=== PATIENT | male | born 1975 | race Caucasian/White ===

== ENCOUNTER 2019-03-13 02:18 | Emergency (ER) | payer OTHER ==
[~2019-03-13] VITALS: Ht 182.9 cm; Wt 98.9 kg
[2019-03-13 02:19] VITALS: Ht 182.9 cm; Wt 98.9 kg
[2019-03-13 03:26] LABS: BASOPHIL % 0.8 % (0-2); PLATELET COUNT 222 x10^3mcL (130-400); RED CELL DISTRIBUTION WIDTH 12.6 % (11.5-14.5)
[2019-03-13 03:32] LABS: CALCIUM 9.9 mg/dL (8.5-10.1); CARBON DIOXIDE 26.9 mmol/L (21-32); CREATININE SERUM 1.5 mg/dL (0.7-1.3); POTASSIUM SERUM 3.4 mmol/L (3.5-5.1)
[2019-03-13 03:37] LABS: ALBUMIN 4.2 g/dL (3.4-5.0); BILIRUBIN TOTAL 0.24 mg/dL (0.20-1.00); TOTAL PROTEIN, SERUM 7.9 g/dL (6.4-8.2)
[2019-03-13 04:25] LABS: microscopic required? NO
[2019-03-13 04:37] LABS: UA SPECIFIC GRAVITY <=1.005 (1.005-1.035); urine erythrocyte NEGATIVE (NEGATIVE)
[2019-03-13 06:51] VITALS: BP 127/69
== END 2019-03-13 06:51 | disposition home or self-care (01) ==
LOC: ED 02:18
PROVIDERS: Emergency Medicine
DX: N20.0 Calculus of kidney (principal); N23 Unspecified renal colic; E78.00 Pure hypercholesterolemia, unspecified
CPT/HCPCS: J1885; J2405; J3010; J7030

== ENCOUNTER 2019-04-18 06:41 | Inpatient (IN) | payer OTHER ==
[~2019-04-18] VITALS: Ht 182.9 cm; Wt 99.8 kg
[2019-04-18 06:45] VITALS: Ht 182.9 cm; Wt 99.8 kg
--- NOTE | 2019-04-18 06:52 | NUR ---
PT BIB SELF WITH C/O INTERMITTENT DIZZINESS AND SOB X 2 DAYS. PT DENIES ANY CP OR SYNCOPAL EPISODE. DENIES ANY FEVER. DENIES ANY N/V/D. PT STS I TOOK ASPIRIN TO HELP WITH PAIN. PT STS HAVING HX OF VERTIGO BUT THIS DIZZINESS DOES NOT SEEM LIKE VERTIGO. PT STS FEELING LIGHTHEADED. DENIES HEADACHE. PT IS A/O X4. PLACED ON FULL CM. WILL ENDORSE TO ONCOMING RN.
--- NOTE | 2019-04-18 06:57 | NUR ---
DR VALLEJO AT BEDSIDE
[2019-04-18 07:23] LABS: BASOPHIL % 0.7 % (0-2); PLATELET COUNT 192 x10^3mcL (130-400); RED CELL DISTRIBUTION WIDTH 12.9 % (11.5-14.5)
[2019-04-18 07:40] LABS: CALCIUM 8.5 mg/dL (8.5-10.1); CARBON DIOXIDE 24.6 mmol/L (21-32); CHLORIDE SERUM 104 mmol/L (98-107); CREATININE SERUM 1.3 mg/dL (0.7-1.3); GFR1 > 60 mL/min; GLUCOSE SERUM 124 mg/dL (74-106); POTASSIUM SERUM 3.4 mmol/L (3.5-5.1); SODIUM SERUM 140 mmol/L (136-145)
[2019-04-18 07:45] LABS: ALKALINE PHOSPHATASE 70 U/L (46-116); ALT/SGPT 33 U/L (16-63); BILIRUBIN TOTAL 0.24 mg/dL (0.20-1.00); LIPASE 190 IU/L (73-393); MAGNESIUM 1.7 mg/dL (1.8-2.4); T4(THYROXINE) 4.7 ug/dL (4.7-13.3); TOTAL PROTEIN, SERUM 7.6 g/dL (6.4-8.2)
[2019-04-18 07:50] LABS: microscopic required? NO
[2019-04-18 07:50] LABS: CHOLESTEROL 216 mg/dL (<200); HDL CHOLESTEROL 27 mg/dL (40-60)
[2019-04-18 07:58] LABS: AST/SGOT 12 U/L (15-37)
--- NOTE | 2019-04-18 07:58 | NUR ---
STATES AT THIS TIME FEELS NORMAL,DIZZINESS INTERMITTENT ON AND OFF SINCE 7 DAYS,
[2019-04-18 08:20] LABS: AMPHETAMINE QUAL UR NONE DETECTED (See below)
[2019-04-18 09:12] LABS: UA SPECIFIC GRAVITY 1.025 (1.005-1.035); urine erythrocyte NEGATIVE (NEGATIVE)
--- NOTE | 2019-04-18 10:00 | NUR ---
AWAKE ALERT, NO COMPLAINTS, NO SOB, RESP. EASY
--- NOTE | 2019-04-18 11:30 | NUR ---
RECEIVED PT FROM ER VIA GURNEY TRANSFER TO [facility], PT AMBULATORY, VERBAL, SAMOAN, ABLE TO MAKE NEEDS KNOWN, AXOX4, DENIED CP/PAIN/PRESSURE, DENIED N/V/D/DIZZINESS, RESP EVEN AND NON-LABORED, NO COUGH, CHEST RISE SYMMETRICALLY, TELE #1, NSR, HR-85 AT THIS TIME, PERRLS, NO REDNESS/DISCHARGE, ABD FLAT AND NONTENDER TO TOUCH, BS ACTIVE X 4, LAST BM 04/18/19, SOFT, ABLE TO MOVE ALL EXTREMITIES, CAP REFILL < 2 SECS, PALP PULSES, CALM AND COPPERATIVE, IV TO LFA PATENT AND NO INFILTRATION NOTED, V/S: 98.1, 135/73 (93), 85, 0/10, 18, 99% AT RA, SAFETY PRECAUTION FOLOWED, ALL NEEDS MET AT THIS TIME, CONTINUE TO MONITOR
[2019-04-18 11:58] VITALS: BP 135/73
--- NOTE | 2019-04-18 12:23 | NUR ---
MRSA SCREENING DONE
--- NOTE | 2019-04-18 12:36 | NUR ---
SEEN BY DR TORRES BRIDGE IRONWORKER HELPER, NO FURTHER CONCERNS NEEDED WHEN ASKED, CONTINUE TO MONITOR
--- NOTE | 2019-04-18 13:24 | NUR ---
PT RESTING IN BED, ECHO AND US CARTOTID DONE AT BEDSIDE
--- NOTE | 2019-04-18 13:51 | NUR ---
PT REQUESTED DOUBLE PORTION D/T BODY SIZE AND MUSCULAR BODY BUILD, REQUEST REFFERED TO PRODUCT SUPPORT CONSULTANT, ALL NEEDS MET, CONTINUE TO MONITOR
--- NOTE | 2019-04-18 16:10 | NUR ---
CALLED TO [employer] RETREAD BUILDER AND TOLD PATIENT CAME DX FOR CHEST PAIN AND IF SHE WANTS TO PUT HIM ON PROTOCOL. SHE STATED SHE WANTS TO WAIT FOR TELETYPEWRITER INSTALLER TO SEE PATIENT.
--- NOTE | 2019-04-18 16:45 | NUR ---
PT RESTING IN BED, NEW ORDER NOTED AND CARRIED OUT, NO ASE NOTED AT THIS TIME, SAFETY PROTOCOL FOLLOWED, FALL RISK, CONTINUE TO MONITOR
[2019-04-18 17:00] VITALS: BP 123/69
--- NOTE | 2019-04-18 17:00 | NUR ---
PT REFUSED TO PUT ON SCDs PER MD ORDER AND PROTOCOL, VERBALIZED UNDERSTANDING RISKS AND BENEFITS, STILL REFUSED SCD, VENEER GLUE SPREADER ROLO AND CHARGE NURSE VARSHA MADE AWARE
[2019-04-18] MEDS ORDERED: MULTI-VITAMINS1 TAB PO (17:31)
--- NOTE | 2019-04-18 18:05 | NUR ---
PT IN BED, RESTING, AXOX4, CALM AND COPPERATIVE, VERBAL, NO FACIAL DROOP/SLURRED SPEECH, DENIED CP/YANES/PAIN/PRESSURE/ PALPITATION, DENIED N/V/D/DIZZINESS, NO COUGH, NO SOB, CHEST RISE SYMMETRICALLY, ABD FLAT AND NON-TENDERED TO TOUCH, CAP REFILL < 2 SECS, PALP PULSES, ABLE TO MOVE ALL EXTREMITIES, AMBULATORY, CONTINENT, TELE #1, IV PATENT AND NO INFILTRATION NOTED, ALL NEEDS MET AT THIS TIME, SAFETY PROTOCOL FOLLOWED, WILL ENDORSE TO ONCOMING RN
--- NOTE | 2019-04-18 19:05 | NUR ---
REPORT RECEIEVED FROM DAY SHIFT FROM DAY SHIFT RN. PATIENT WAS SEEN AND IS RESTING COMFORTABLY IN BED. NO DISTRESS NOTED. BREATHING EVEN AND UNLABORED ON ROOM AIR. NO SOB OR RESP DISTRESS NOTED. DENIES CHEST PAIN. NO C/O PAIN. TELE #1 NSR. EDUCATED PATIENT ON SCDS. PATIENT DOES NOT WANT SCD AND STATES "I DON'T NEED THAT". DENIES DIZZINESS. IV TO THE RFA, 20G. SALINE LOCK. PATENT AND INTACT. NO REDNESS OR SWELLING NOTED. COMFORT AND SAFETY MEASURES IN PLACE. BED IS LOCKED AND IN THE LOWEST POSITION. SIDE RAILS UP X2. CALL LIGHT IS WITHIN REACH. WILL CONTINUE TO MONITOR.
--- NOTE | 2019-04-19 00:31 | NUR ---
RESTING IN BED WITH EYES CLOSED. NO DISTRESS NOTED. BREATHING EVEN AND UNLABORED. NO S/S OF PAIN NOTED. SAFETY MEASURES IN PLACE. CALL LIGHT IS WITHIN REACH. WILL CONTINUE TO MONITOR.
[2019-04-19 01:01] VITALS: BP 126/84
--- NOTE | 2019-04-19 02:15 | NUR ---
PATIENT IS RESTING IN BED WITH EYES CLOSED. NO DISTRESS NOTED. BREATHING EVEN AND UNLABORED ON ROOM AIR. NO SOB OR RESP DISTRESS NOTED. NO S/S OF PAIN NOTED. IV, SALINE LOCK. SAFETY MEASURES IN PLACE. CALL LIGHT IS WITHIN REACH. WILL CONTINUE TO MONITOR.
--- NOTE | 2019-04-19 05:00 | NUR ---
C/O 11/24 HEADACHE AND REQUESTING TYLENOL. PRN TYLENOL WAS ADMINISTERED PRESCRIBED. NO DISTRESS NOTED. BREATHING EVEN AND UNLABORED. CALL LIGHT IS WITHIN REACH. WILL CONTINUE TO MONITOR
[2019-04-19 05:24] VITALS: BP 124/71
--- NOTE | 2019-04-19 06:04 | NUR ---
PATIENT RESTED IN LONG INTERVALS THROUGHOUT THE NIGHT. NO ACUTE CHANGES NOTED. BREATHING EVEN AND UNLABORED ON ROOM AIR. DENIES CHEST PAIN. TELE#1 NSR. C/O PAIN X1, HEADACHE, MEDICATED WITH TYLENOL WITH GOOD RELIEF. IV TO TH RFA, SALINE LOCK. PATENT AND INTACT. NO REDNESS OR SWELLING NOTED. ALL NEEDS AND CONCERNS ADDRESSED. SAFETY MEASURES IN PLACE. CALL LIGHT IS WITHIN REACH. WILL CONTINUE TO MONITOR AND ENDORSE CARE TO DAY SHIFT RN.
[2019-04-19 06:52] LABS: BASOPHIL % 0.8 % (0-2); CALCIUM 9.1 mg/dL (8.5-10.1); CARBON DIOXIDE 30.3 mmol/L (21-32); CHLORIDE SERUM 108 mmol/L (98-107); CREATININE SERUM 1.2 mg/dL (0.7-1.3); GFR1 > 60 mL/min; GLUCOSE SERUM 103 mg/dL (74-106); PLATELET COUNT 182 x10^3mcL (130-400); POTASSIUM SERUM 4.7 mmol/L (3.5-5.1); RED CELL DISTRIBUTION WIDTH 13.1 % (11.5-14.5); SODIUM SERUM 145 mmol/L (136-145)
--- NOTE | 2019-04-19 07:05 | NUR ---
RECEIVED BEDSIDE REPORT FROM MANUFACTURING TECH NURSE AT THIS TIME. PATIENT RESTING COMFORTABLY IN BED. NO APPARENT DISTRESS OR DISCOMFORT NOTED. BREATHING EVEN AND UNLABORED. NO RESPIRATORY DISTRESS NOTED. NO INDICATION OF CHEST PAIN/PRESSURE AT THIS TIME. IV PATENT AND INTACT. ALL QUESTIONS AND CONCERNS ADDRESSED. ALL NEEDS ATTENDED TO. WILL CONTINUE TO MONITOR
[2019-04-19 08:54] VITALS: BP 137/81
--- NOTE | 2019-04-19 10:00 | NUR ---
ALL MORNING MEDICATIONS ADMINISTERED. PATIENT TOLERATED WELL. NO ADVERSE EFFECTS NOTED. ALL NEEDS ATTENDED TO. WILL CONTINUE TO MONITOR
[2019-04-19 11:06] VITALS: BP 137/81
--- NOTE | 2019-04-19 12:02 | NUR ---
PATIENT STABLE TO BE DISCHARGED TO HOME. SPOKE TO NUMERICAL CONTROL OPERATOR WOJCIECH REGARDING PATIENT CHOLESTEROL OF 216. PER NUMERICAL CONTROL OPERATOR WOJCIECH, NO STATIN REQUIRED AND PATIENT TO JUST FOLLOW UP WITH PCP. DISCHARGE INSTRUCTIONS GIVEN WELL EDUCATION. INSTRUCTED PATIENT ABOUT FOLLOW UP APPOINTMENT. PATIENT VERBALIZES UNDERSTANDING. IV REMOVED WITH CATH INTACT. ID BANDS REMOVED. TELE MONITOR REMOVED AND RETURNED TO LIVESTOCK YARD SUPERVISOR. ALL BELONGINGS WITH PATIENT. ALL QUESTIONS AND CONCERNS ADDRESSED. ALL NEEDS ATTENDED TO. PATIENT ESCORTED DOWN TO THE LOBBY BY SCHOOL TREASURER AT THIS TIME.
== END 2019-04-19 12:02 | disposition home or self-care (01) | DRG 313 ==
LOC: ED 06:41 → DU 11:01
PROVIDERS: Emergency Medicine; ADMIT Internal Medicine
DX: R07.89 Other chest pain (principal); E87.6 Hypokalemia; E78.00 Pure hypercholesterolemia, unspecified; I50.9 Heart failure, unspecified; E78.5 Hyperlipidemia, unspecified
CPT/HCPCS: 83880; 85378; G0378; J3475; J7030; Q0092